=== PATIENT | female | born 1965 | race Caucasian/White ===

== ENCOUNTER 2019-06-21 12:28 | Emergency (ER) | payer OTHER ==
[~2019-06-21] VITALS: Ht 157.5 cm; Wt 84.1 kg
[2019-06-21 12:56] VITALS: BP 146/91
--- NOTE | 2019-06-21 13:02 | NUR ---
PT ambulated to lobby at this time, VSS
--- NOTE | 2019-06-21 14:21 | NUR ---
C/O RIGHT WRIST PAIN X 2 DAYS DENIES DIRECT INJURY--NO SWELLING OR DISCOLORATION NOTED +2 RADIAL PULSE
--- NOTE | 2019-06-21 14:54 | NUR ---
Dr. Copeland is evaluating the patient.
--- NOTE | 2019-06-21 15:32 | NUR ---
Patient discharged with v/s stable. Written and verbal after care instructions given and explained. Patient alert, oriented and verbalized understanding of instructions. Ambulatory with steady gait. All questions addressed prior to discharge. ID band removed. Patient advised to follow up with PMD. Rx of NORCO, MOTRIN given. Patient educated on indication of medication including possible reaction and side effects. Opportunity to ask questions provided and answered.
[2019-06-21 15:33] VITALS: BP 146/91
== END 2019-06-21 15:32 | disposition home or self-care (01) ==
LOC: MED 12:28
DX: G56.01 Carpal tunnel syndrome, right upper limb (principal); Z98.890 Other specified postprocedural states
CPT/HCPCS: 73090; 73110; 73130; 99283